=== PATIENT | male | born 1970 | race Caucasian/White ===

== ENCOUNTER 2016-11-04 08:00 | Outpatient (CLI) | payer BC ==
[2016-09-22 07:59] VITALS: BMI 42.2
[~2016-11-04 08:00] MED LIST: ASPIRIN325 MG PO; ASPIRIN81 MG PO; LISINOPRIL-HCTZ1 TA2 PO; PLAVIX75 MG PO
[2016-11-05 08:20] LABS: HEPATITIS C ANTIBODY <0.1 (0.0-0.9)
[2016-12-02] MEDS ORDERED: CLARITIN 10 MG10 MG PO (13:09)
== END 2016-11-04 23:59 | disposition home or self-care (01) ==
LOC: D.US 08:00
PROVIDERS: Internal Medicine Cardiovascular Disease
DX: I65.21 Occlusion and stenosis of right carotid artery (principal); Z01.810 Encounter for preprocedural cardiovascular examination; Z01.811 Encounter for preprocedural respiratory examination; Z01.812 Encounter for preprocedural laboratory examination

== ENCOUNTER 2016-11-15 08:00 | Outpatient (CLI) | payer BC ==
[2016-09-22 07:59] VITALS: BMI 42.2
--- NOTE | 2016-11-13 12:21 | HP ---
PATIENT: NAZANIN RAMEY MEDICAL RECORD: [id number] ACCOUNT: [id number] LOCATION:[facility] : 68 ADMISSION DATE: 11/16/16 HISTORY AND PHYSICAL EXAMINATION RONALD Davis (46yo, M) ID# [id number]. Date/Time11/04/2016 11:25YWAUE73 1969[facility] Dept.[facility] ClinicProviderEDNGUYEN STAHL MDInsuranceMed Primary: BCBS-[place]: [employer] - HEALTH ADVANTAGE (PPO) Insurance # : [id number] Policy/Group # : [id number] PCP : TERESITA WILDE Referring Provider Name : TERESITA WILDE Employer Name : SELF EMPLOYED Prescription: MDIM - Member is eligible. Chief Complaint Coronary artery disease Followup: Aortic valve stenosis following 3 weeks surgery date? Patient's Care Team Primary Care Provider (): TERESITA WILDE: [facility], [address] [place] [phone], , Referring Provider (): TERESITA WILDE: [facility], [facility] [place] [address], , Patient's Pharmacies [facility] [id number] (ERX): [address] [place] [address], , Vitals BP:100/70 sitting R arm 11/04/2016 12:15 pmHR:60R/R 11/04/2016 12:15 pmHt:6 ft 2 in 11/04/2016 12:08 pmWt:315 lbs 11/04/2016 12:14 pmNotes:murmur 11/04/2016 12:15 pmBMI:40.4 11/04/2016 12:14 pmAllergies Reviewed Allergies NKDAMedications Reviewed Medications tgxfgpy68/27/11 enteredKristen HerroncephALEXin 500 mg /04/17 filledMEDIMPACTclopidogrel 75 mg qvuohz27/30/16 filledMEDIMPACTfluticasone 50 mcg/actuation nasal spray,xccagvbxyd61/04/17 filledMEDIMPACTlisinopril 10 mg-hydrochlorothiazide 12.5 mg tablet TK1 T PO D112/13/15 filledMEDIMPACTProblems Reviewed Problems Coronary arteriosclerosis - Onset: 11/04/2016 Aortic valve stenosis - Onset: 10/13/2016 Disorder of shoulder Pain in right knee Organic sleep apnea Obstructive sleep apnea syndrome Family History Discussed Family History Father- Depressive disorderMaternal Grandmother- Heart diseasePaternal Grandfather- Heart diseaseSocial History Reviewed Social History HISTORY AND PHYSICAL [id number] NAZANIN RAMEY Cardiology Family history of heart disease?: Y Smoking Status: Never smoker High Cholesterol: Y High blood pressure: Y Overweight: Y Obese: Y Alcohol intake: None Diet: Regular Occupation: Construction Marital status: Is blood transfusion acceptable in an emergency?: Y Surgical History Reviewed Surgical History Tonsillectomy - 10/24/1975 - UNKNOWN DATE coronary stent 2015 Past Medical History Reviewed Past Medical History Chest Pain: Y Heart Murmur: Y High Blood Pressure: Y Hypertension: Y Shortness of Breath: Y Stroke: Y Notes: pain in chest area Documents for Discussion N/A Screening None recorded. HPI Valvular Heart Disease Reported by patient. Context: aortic stenosis Associated Symptoms: dyspnea moderate; chest pain Notes: stop plavix 10/23/16 "chest pain with activity. Dr. Soto says it's r/t heart vavle" Severe aortic stenosis ROS Patient reports exercise intolerance. He reports chest pain on exertion, shortness of breath when walking, shortness of breath when lying down, and known heart murmur. He reports shortness of breath. Neurologic:: hx stroke 2010, BP related and affected L side. ROS as noted in the HPI Physical Exam Patient is a 46-year-old male. Constitutional: General Appearance healthy-appearing and obese. Level of Distress NAD. Ambulation ambulating normally. Cardiovascular: Apical Impulse not displaced, no thrill, and displaced (laterally). Heart Auscultation normal s1 and s2, no rubs or gallops, and RRR and murmur (aortic stenosis). Arterial Pulses no abdominal aorta bruits, femoral bruits, or popliteal bruits and 2+ bilateral, carotid 2+ bilateral, femoral 2+ bilateral, popliteal 2+ HISTORY AND PHYSICAL [id number] NAZANIN RAMEY bilateral, and dorsalis pedis 2+ bilateral. Edema no edema or varicosities. Lungs: Repiratory Effort no dyspnea. Percussion no hyperresonance or dullness or flatness. Auscultation no wheezing, rhonchi, or rales / crackles and breathing sounds normal, good air movement, and CTA except as noted. Abdomen: Bowl Sounds normal. Inspection and Palpation no tenderness, guarding, masses, or rebound tenderness and soft and non-distended. Liver non-tender and no hepatomegaly. Spleen non-tender and no splenomegaly. Hernia none palpable. Musculoskeletal System: Gait And Stance normal gait and stance. Digits and Nails normal nails and no cyanosis. Neurologic: Cranial Nerves grossly intact. Reflexes DTRs 2+ bilaterally throughout. Sensation grossly intact. Lymph Nodes: Lymph Nodes no cervical LAD, supraclavicular LAD, axillary LAD, or inguinal LAD. Eyes: Lids and Conjunctivae no discharge or pallor and non-injected. Pupils PERRLA. Cornea grossly intact. EOM EOMI. Lens clear. Sclerae non-icteric. Neck: Neck no masses, enlarged lymph nodes, or carotid bruits and supple and trachea midline. Thyroid no enlargement or nodules and non-tender. Skin: Inspection and Palpation no rash, lesions, ulcers, jaundice, or abnormal nevi. Assessment / Plan Severe aortic stenosis he would like to proceed with aortic valve replacement He would prefer a mechanical valve 1. Aortic valve stenosis I35.0: Nonrheumatic aortic (valve) stenosis AORTIC VALVE STENOSIS: CARE INSTRUCTIONS Discussion Notes I have discussed the patient's disease process with him and his in detail as well as the alternative methods of treatment. We discussed the different types of valve to be used mechanical versus tissue. He would like to proceed with a mechanical valve. I have discussed aortic valve replacement with them including the expected benefits and risks which included bleeding, infection, stroke, and . He understands all of the above and wishes to proceed with surgery the week of the . Hepatitis screen and carotid Doppler study today CHERYL STAHL MD at 1221 CC: [id number] DICTATION DATE: 11/04/16 1100 MARKETING OUTREACH COORDINATOR: DM 11/10/16 1537 PRE IN [facility] [address] [place] [address]
[2016-11-15] MEDS ORDERED: FLUTICASONE PRO16 GM NASAL (13:02)
[2016-11-15 14:14] LABS: BASOPHILS 0.1 % (0.0-2.0); EOSINOPHILS 2.3 % (0-7); HEMATOCRIT 43.8 % (42.0-54.0); HEMOGLOBIN 14.7 g/dL (13.5-17.5); IMMATURE GRANULOCYTES 0.2 % (0-5); LYMPHOCYTES 18.2 % (15-50); MCH 29.3 pg (26.0-34.0); MCHC 33.6 g/dL (31.0-37.0); MCV 87.4 fL (80.0-100.0); MEAN PLATELET VOLUME 9.1 fL (7.4-10.4); MONOCYTES 10.2 % (2-11); PLATELET COUNT 196 10x3/uL (130-400); RBC 5.01 10x6/uL (4.20-6.10); RDW 13.5 % (11.5-14.5); WBC 8.6 10x3/uL (4.8-10.8)
[2016-11-15 14:19] LABS: APPEARANCE CLEAR (CLEAR); BILIRUBIN NEGATIVE (NEGATIVE); COLOR YELLOW (YELLOW); GLUCOSE NEGATIVE (NEGATIVE); KETONE NEGATIVE (NEGATIVE); LEUKOCYTE ESTERASE NEGATIVE (NEGATIVE); NITRITE NEGATIVE (NEGATIVE); PROTEIN NEGATIVE (NEGATIVE); SPECIFIC GRAVITY 1.015 (1.005-1.020); UROBILINOGEN NORMAL (NORMAL)
[2016-11-15 14:32] LABS: APTT 28.4 SECONDS (22.8-39.4); INR 1.04 (0.85-1.17); PROTIME 13.5 SECONDS (11.6-15.0)
[2016-11-15 14:48] LABS: ALBUMIN 3.7 g/dL (3.4-5.0); ALKALINE PHOSPHATASE 79 U/L (46-116); ALT (SGPT) 22 U/L (10-68); BILIRUBIN - TOTAL 0.29 mg/dL (0.2-1.3); CALC OSMOLALITY 286 mosm/kg (275-300); CALCIUM 9.2 mg/dL (8.5-10.1); CARBON DIOXIDE 28.3 mmol/L (21.0-32.0); CHLORIDE - SERUM 105 mmol/L (98-107); CHOLESTEROL, TOTAL 216 mg/dL (0-200); CREATININE - SERUM 1.1 mg/dL (0.6-1.3); GLUCOSE 92 mg/dL (74-106); PHOSPHOROUS 3.2 mg/dL (2.5-4.9); POTASSIUM - SERUM 4.1 mmol/L (3.5-5.1); PROTEIN - SERUM 7.6 g/dL (6.4-8.2); SODIUM 142 mmol/L (136-145); T4 THYROXIN - FREE 0.95 ng/dL (0.76-1.46); THYROID STIMULATING HORMONE 1.76 uIU/mL (0.36-3.74); UREA NITROGEN 23 mg/dL (7-18); URIC ACID 6.7 mg/dL (2.6-7.2); eGFR NON AFRICAN AMERICAN 76 mL/min (90-120)
[2016-11-15 14:52] LABS: HEMOGLOBIN A1C 5.9 % (4.8-6.0)
[2016-11-15 15:30] LABS: COLD SCREEN @ 4 DEGREES 2+ (NEGATIVE); COLD SCREEN ROOM TEMP NEGATIVE (NEGATIVE)
[2016-12-02] MEDS ORDERED: CLARITIN 10 MG10 MG PO (13:09)
== END 2016-11-15 23:59 | disposition home or self-care (01) ==
LOC: D.PAN 08:00 → D.SDCHOLD 11-16 07:30 → EDSTATUS 11-16 07:30
PROVIDERS: Internal Medicine Cardiovascular Disease
DX: I35.0 Nonrheumatic aortic (valve) stenosis (principal); Z01.810 Encounter for preprocedural cardiovascular examination; Z01.811 Encounter for preprocedural respiratory examination; Z01.812 Encounter for preprocedural laboratory examination; Z53.9 Procedure and treatment not carried out, unspecified reason

== ENCOUNTER 2016-12-03 05:05 | Inpatient (IN) | payer BC ==
[2016-12-02 14:53] LABS: BASOPHILS 0.1 % (0.0-2.0); EOSINOPHILS 1.3 % (0-7); HEMOGLOBIN 14.4 g/dL (13.5-17.5); IMMATURE GRANULOCYTES 0.3 % (0-5); LYMPHOCYTES 19.2 % (15-50); MCH 28.7 pg (26.0-34.0); MCHC 32.7 g/dL (31.0-37.0); MCV 87.6 fL (80.0-100.0); MEAN PLATELET VOLUME 9.4 fL (7.4-10.4); MONOCYTES 8.5 % (2-11); NEUTROPHILS 70.6 % (40-80); PLATELET COUNT 179 10x3/uL (130-400); RBC 5.02 10x6/uL (4.20-6.10); RDW 13.7 % (11.5-14.5); WBC 9.1 10x3/uL (4.8-10.8)
[2016-12-02 15:06] LABS: APPEARANCE CLEAR (CLEAR); COLOR YELLOW (YELLOW)
[2016-12-02 15:07] LABS: BILIRUBIN NEGATIVE (NEGATIVE); GLUCOSE NEGATIVE (NEGATIVE); KETONE NEGATIVE (NEGATIVE); LEUKOCYTE ESTERASE NEGATIVE (NEGATIVE); NITRITE NEGATIVE (NEGATIVE); PROTEIN NEGATIVE (NEGATIVE); UROBILINOGEN NORMAL (NORMAL)
[2016-12-02 15:10] LABS: HEMOGLOBIN A1C 5.8 % (4.8-6.0)
[2016-12-02 15:15] LABS: ALKALINE PHOSPHATASE 76 U/L (46-116); ALT (SGPT) 24 U/L (10-68); BILIRUBIN - TOTAL 0.45 mg/dL (0.2-1.3); CALC OSMOLALITY 284 mosm/kg (275-300); CHLORIDE - SERUM 104 mmol/L (98-107); CHOLESTEROL, TOTAL 206 mg/dL (0-200); GLUCOSE 85 mg/dL (74-106); PHOSPHOROUS 3.4 mg/dL (2.5-4.9); POTASSIUM - SERUM 4.5 mmol/L (3.5-5.1); PROTEIN - SERUM 7.4 g/dL (6.4-8.2); SODIUM 141 mmol/L (136-145); T4 THYROXIN - FREE 1.11 ng/dL (0.76-1.46); THYROID STIMULATING HORMONE 1.48 uIU/mL (0.36-3.74); UREA NITROGEN 27 mg/dL (7-18); URIC ACID 6.7 mg/dL (2.6-7.2); eGFR NON AFRICAN AMERICAN 85 mL/min (90-120)
[2016-12-02 15:58] LABS: COLD SCREEN @ 4 DEGREES 2+ (NEGATIVE); COLD SCREEN ROOM TEMP NEGATIVE (NEGATIVE)
[~2016-12-03] VITALS: Ht 188 cm; Wt 145.5 kg
[2016-12-03] VITALS (45 sets, daily range): BP systolic 81–110; BP diastolic 39–73; BMI 39.9
[~2016-12-03 05:05] MED LIST changes: +CLARITIN 10 MG10 MG PO; +FLUTICASONE PRO16 GM NASAL
[2016-12-03 05:47] LABS: APTT 28.5 SECONDS (22.8-39.4); INR 0.97 (0.85-1.17); PROTIME 12.7 SECONDS (11.6-15.0)
[2016-12-03 08:07] LABS: PLT FUNCT.(P2Y12) PLAVIX 292 PRU (194-418)
[2016-12-03 13:00] LABS: HEMATOCRIT 36.1 % (42.0-54.0); MCH 28.7 pg (26.0-34.0); MCHC 33.2 g/dL (31.0-37.0); MCV 86.4 fL (80.0-100.0); MEAN PLATELET VOLUME 9.3 fL (7.4-10.4); RBC 4.18 10x6/uL (4.20-6.10); RDW 13.7 % (11.5-14.5); WBC 13.9 10x3/uL (4.8-10.8)
[2016-12-03 13:19] LABS: APTT 36.6 SECONDS (22.8-39.4); CALCIUM 8.3 mg/dL (8.5-10.1); CARBON DIOXIDE 23.4 mmol/L (21.0-32.0); CHLORIDE - SERUM 105 mmol/L (98-107); CREATININE - SERUM 0.8 mg/dL (0.6-1.3); INR 1.31 (0.85-1.17); POTASSIUM - SERUM 4.2 mmol/L (3.5-5.1); PROTIME 16.2 SECONDS (11.6-15.0); SODIUM 139 mmol/L (136-145); eGFR NON AFRICAN AMERICAN > 90 mL/min (90-120)
[2016-12-03 13:20] LABS: CALC OSMOLALITY 283 mosm/kg (275-300); GLUCOSE 174 mg/dL (74-106); UREA NITROGEN 19 mg/dL (7-18)
--- NOTE | 2016-12-03 13:28 | NUR ---
RECIEVED PT TO ROOM 2304 VIA BED, ICU MONITORS CONNECTED. SEE ASSESSMENT FLOWSHEET FOR ALL FINDINGS.
--- NOTE | 2016-12-03 13:30 | NUR ---
INVOS LEFT 64, RIGHT 64.
--- NOTE | 2016-12-03 13:40 | NUR ---
FAMILY AT BEDSIDE, UPDATED BY DR STAHL.
--- NOTE | 2016-12-03 14:37 | NUR ---
SPOKE WITH DAYLIN HARE RN VIA PHONE. PT ABGs AND VITALS REPORTED TO DR STAHL.
--- NOTE | 2016-12-03 15:15 | NUR ---
DR STAHL AT BEDSIDE, NEW ORDERS RECEIVED.
--- NOTE | 2016-12-03 17:17 | NUR ---
SPOKE WITH DR STAHL VIA PHONE, UPDATE PROVIDED.
--- NOTE | 2016-12-03 18:25 | NUR ---
ABG OBTAINED AND PT PLACED ON CPAP.
--- NOTE | 2016-12-03 19:15 | NUR ---
ASSESSMENT COMPLETED. SEE ASSESSMENT FLOWSHEET FOR DETAILS. B/P FROM 80-90'S THEN DOWN TO UPPEER 70'S BRIEFLY. RT RADIAL A-LINE INTACT WITH FLEXION BOARD IN USE. LOOSENED TIES AROUND FLEXION BOARD SOME. CAP REFILL< 4 SECONDS. COOL TEMP TO DISTAL EXTREMITIES. RT IJ ANGIE AT APPROX. 52 CM LOCKED. TPM SET @ VVI-60; VMA OF 10. PACER SENSING ONLY. IN SINUS RHYHTM TO SINUS TACHYCARDIA. TEMP ELEVATED TO 38.9 CELCIUS. REMOVED SHEET AND BLANKET FROM BODY. ON CPAP MODE VIA VENT. TEDS AND SCD'S ON TO BILATERAL LE'S. PALPABLE PERIPHERAL PULSES X4. RT SC CVL INTACT. WILL MONITOR.
--- NOTE | 2016-12-03 20:15 | NUR ---
CALLED DR. STAHL AND INFORMED OF B/P SYSTOLIC IN THE 80'S WITH SOME PAC/PVC'S NOTED. ALSO INFORMED OF TEMP UP TO 39.3 CELCIUS. NEW ORDERS RECEIVED. WILL MONITOR. 1:1 NURSING CARE IN PROGRESS.
--- NOTE | 2016-12-03 20:25 | NUR ---
EXTUBATED TO 6LPM/NC AND OGT REMOVED VIA NILES WITH R.T. TOLERATED WELL. MINIMAL SECRETIONS REMOVED ORALLY AND OETT BEFORE EXTUBATION. WILL MONITOR.
--- NOTE | 2016-12-03 21:10 | NUR ---
IN AT BEDSIDE FOR VISITATION. OLD BLOODY DRAINAGE NOTED AROUND GAN CATHETER. WANTS HIS INSTEAD OF MYSELF TO WASH THE AREA. DONNED GLOVES AND DONE SO. UPDATE GIVEN. WILL MONITOR.
--- NOTE | 2016-12-03 22:15 | NUR ---
CALLED DR. STAHL IN REGARD TO B/P IN THE 70'S CONSISTENTLY. ABG OBTAINED AND REVIEWED WITH DR. STAHL. HEMODYNAMIC INFO GIVEN. NEW ORDERS RECEIVED TO INCREASE DOPAMINE TO 7.5MCG/KG/MIN AND IF THAT DOES NOT GET SBP >90, START JHOAN GTT.
--- NOTE | 2016-12-03 22:40 | NUR ---
I.S. COMPLETED AFTER BREATHING TREATMENT FINISHED. ACHIEVED 750ML TWICE AND 500ML THE OTHER 8 TIMES. MINIMAL SPUTUM PRODUCTION AFTER SPLINTED COUGH DONE. WILL MONITOR.
--- NOTE | 2016-12-03 23:10 | NUR ---
REASSESSMENT COMPLETED. SEE ASSESSMENT FLOWSHEET. SLIGHT RUB HEARD HEART TONES. 38.7 DEGREES CELCIUS VIA VIGILENCE MONITOR. WILL MONITOR.
--- NOTE | 2016-12-03 23:30 | NUR ---
TURNED AND REPOSITIONED TO LEFT SIDE SLIGHTLY WITH PILLOW. TOLERATED WELL. COUGH AND DEEP BREATHING EXERCISES COMPLETED. SMALL AMT OF THICK, RENEE COLORED SPUTUM REMOVED. WILL MONITOR.
[2016-12-04] VITALS (94 sets, daily range): BP systolic 92–127; BP diastolic 49–76; Ht 188 cm; Wt 145.5 kg
--- NOTE | 2016-12-04 00:48 | NUR ---
SIPS OF WATER GIVEN. FAN PLACED PER PT REQUEST AND POINTING AT LEGS ONLY. IV PROTONIX GIVEN. WILL MONITOR.
--- NOTE | 2016-12-04 00:55 | NUR ---
FSBS-170. INCREASED INSULIN GTT TO 2 UNITS/HR ON GTT.
--- NOTE | 2016-12-04 02:20 | NUR ---
Q4H ABG DRAWN BY RT CAGE. BREATHING TREATMENT ALSO STARTED. 12-LEAD EKG COMPLETED PER ORDERS. TOLERATED WELL. NO NEW ACUTE DISTRESS NOTED. WILL MONITOR.
--- NOTE | 2016-12-04 03:30 | NUR ---
PORTABLE CHEST XRAY COMPLETED. TOLERATED WELL. 75% ASSIST WITH SITTING UP TO GET BOARD BEHIND HIM. REASSESSMENT COMPLETED. SEE ASSESSMENT FLOWSHEET. NEURO INTACT. O2 @ 5LPM/NC. WEANED DOPAMINE TO 7.2 MCG/KG/MIN. WILL MONITOR.
--- NOTE | 2016-12-04 04:58 | NUR ---
FSBS-160. INCREASED INSULIN TO 7 UNITS/HR. ASKING WHAT THE SUGAR WAS. INFORMED. INFORMED SUGAR WILL BE TAKEN AGAIN IN 30 MINUTES. NO ACUTE DISTRESS NOTED. WILL MONITOR. 1:1 NURSING CARE IN PROGRESS.
--- NOTE | 2016-12-04 05:21 | NUR ---
DECREASED O2 TO 4LPM/NC. O2 SATS RUNNING 96-97%. WILL MONITOR.
--- NOTE | 2016-12-04 05:47 | NUR ---
ABG DRAWN FOR LAST SET OF Q4H DRAWS ALONG WITH AM LABS TAKEN FROM RT RADIAL A-LINE. WILL MONITOR. 1:1 NURSING CARE IN PROGRESS.
[2016-12-04 05:56] LABS: HEMATOCRIT 34.9 % (42.0-54.0); HEMOGLOBIN 11.6 g/dL (13.5-17.5); MCH 28.6 pg (26.0-34.0); MCHC 33.2 g/dL (31.0-37.0); MEAN PLATELET VOLUME 9.1 fL (7.4-10.4); RBC 4.06 10x6/uL (4.20-6.10); RDW 13.6 % (11.5-14.5); WBC 12.3 10x3/uL (4.8-10.8)
--- NOTE | 2016-12-04 06:00 | NUR ---
KCL RIDER STARTED VIA BURETROL FOR K+=3.7 ON ABG. AT BEDSIDE FOR 0600 VISIT. UPDATE GIVEN. PATIENT DENIES TO BE TURNED AT THIS TIME.
[2016-12-04 06:15] LABS: ALBUMIN 3.9 g/dL (3.4-5.0); ALKALINE PHOSPHATASE 44 U/L (46-116); ALT (SGPT) 19 U/L (10-68); BILIRUBIN - TOTAL 0.77 mg/dL (0.2-1.3); CALC OSMOLALITY 285 mosm/kg (275-300); CALCIUM 8.8 mg/dL (8.5-10.1); CARBON DIOXIDE 26.2 mmol/L (21.0-32.0); CHLORIDE - SERUM 104 mmol/L (98-107); GLUCOSE 188 mg/dL (74-106); POTASSIUM - SERUM 3.8 mmol/L (3.5-5.1); PROTEIN - SERUM 6.7 g/dL (6.4-8.2); SODIUM 140 mmol/L (136-145); UREA NITROGEN 19 mg/dL (7-18); eGFR NON AFRICAN AMERICAN 85 mL/min (90-120)
--- NOTE | 2016-12-04 06:40 | NUR ---
REPORTS FEELING A LITTLE BIT NAUSEATED AFTER A FEW SIPS OF DIET [place]. ZOFRAN GIVEN PER REQUEST. WILL MONITOR.
--- NOTE | 2016-12-04 06:59 | NUR ---
REPORT GIVEN TO SHELTON SOTELO RN.
--- NOTE | 2016-12-04 09:00 | NUR ---
IV DRIPS ADJUSTED SEE FLOW SHEET.
--- NOTE | 2016-12-04 09:10 | NUR ---
FAMILY AT BEDSIDE UPDATED.
--- NOTE | 2016-12-04 10:27 | NUR ---
CRITICORE GAN BATTERIES CHANGED.
--- NOTE | 2016-12-04 11:05 | NUR ---
DR. STAHL AT BEDSIDE.
--- NOTE | 2016-12-04 11:18 | NUR ---
ENCOURAGED COUGHING, DEEP BREATHING, AND IS. PULLING [id number] ON IS.
--- NOTE | 2016-12-04 12:06 | OP ---
PATIENT NAME: NAZANIN RAMEY MEDICAL RECORD: [id number] :68 LOCATION:[facility] D.2304 ADMISSION DATE:12/03/16 SURGEON: CHERYL PIERCE MD DATE OF OPERATION: 12/03/2016 SURGEON: Cheryl Pierce MD. ANESTHESIA: General endotracheal, Dr. Alvarado. OPERATION PERFORMED: Aortic valve replacement utilizing a 25-mm St. Wale mechanical valvular prosthesis. PREOPERATIVE DIAGNOSIS: Severe aortic stenosis. POSTOPERATIVE DIAGNOSIS: Severe aortic stenosis secondary to bicuspid aortic valve with severe aortic and annular calcification. INDICATION FOR OPERATION: Severe aortic stenosis. FINDINGS AT OPERATION: Severe aortic stenosis secondary to a heavily calcified bicuspid aortic valve with severe calcification of the annulus. ESTIMATED BLOOD LOSS: Cell Saver was used. Transesophageal echo demonstrated the critical aortic stenosis, dilated left ventricle that improved post-valve replacement. DESCRIPTION OF PROCEDURE: After informed consent and adequate preoperative medication evaluation, the patient was brought to the operating room, placed on the table in the supine position. After induction of general endotracheal anesthesia and application of appropriate monitoring devices, chest, neck, abdomen, and both legs were prepped and draped in a sterile field, utilizing Betadine scrub, alcohol, and Betadine solution. A Betadine-impregnated drape was also used. A standard median sternotomy incision was used and dissection carried down the fascia. Hemostasis maintained with electrocautery. Sternum was divided and the innominate vein was identified and protected. The pericardial well was formed by utilizing pericardial traction sutures. The patient was given a calculated dose of heparin, cannulated in the standard fashion utilizing 1 aortic, one two-stage cannula in the atrium and inferior vena cava. The patient was placed on cardiopulmonary bypass, cooled to 32 degrees centigrade. A cross clamp was placed just proximal to the aortic cannula and the patient was given cardioplegic solution through the aortic root. The patient was given a cold induction and cold maintenance. The patient was given cold intermittent cardioplegic solution throughout the procedure through the root or directly through the coronary ostia. A vent was placed to the right superior pulmonary vein. The aorta was opened, the valve was examined. The valve was excised in pieces due to the heavy calcification. The annulus then underwent an extensive debridement and irrigation. Care was taken not to lose any calcium particles. The annulus was also heavily calcified in ____ left cusp areas and there were several areas where the calcium was removed and then the annulus and ventricular structures were reapproximated with 5-0 Prolene sutures. The annulus was completely decalcified. The annulus sized to a 25 [address] Wale mechanical heart valve. Circumferential valve sutures were placed, being careful to take the pledgeted in through the base of the mitral valve and ventricular side of the annulus and exiting above the annulus structures. This OPERATIVE REPORT [id number] NAZANIN RAMEY was a supravalvular valve; therefore, circumferential valve sutures were placed through the sewing ring of the valve. The valve was lowered into position and secured. The platelet seated nicely and there were no leaks. The aorta was irrigated and closed in layers utilizing 2 layers of running 4-0 Prolene suture. All maneuvers to remove trapped air were performed. The patient was then given warm cardioplegic reperfusion and controlled reperfusion. The patient rewarmed to 37 degrees centigrade. Two atrial and 2 ventricular pacing wires were placed on the heart and brought out through the epigastric area. After rest and recuperation time, the patient was weaned from cardiopulmonary bypass. After being stable off bypass, given calculated dose of protamine to reverse the heparin. Hemostasis was achieved. A #40 right angle and #36 chest tube were brought in through the epigastric area and placed in mediastinum. The chest was again irrigated. Instrument count and sponge count were correct times 2. Chest was closed in layers utilizing #7 wire on the sternum, #2 Vicryl on linea alba and pectoralis fascia. Subcutaneous tissue was approximated with 2-0 Vicryl and skin approximated with 3-0 subcuticular Vicryl. Sterile dressings were applied. The patient tolerated the procedure well and transferred to the ICU in stable condition. TRANSINT:[id number] Voice Confirmation ID: [id number] DOCUMENT ID: [id number] CHERYL PIERCE MD at 1206 CC: [id number] DICTATION DATE: 12/03/16 1313 ASSOCIATE PROFESSOR PHYSICIAN: 12/03/16 1632 ADM IN [facility] [address] [place] [address]
--- NOTE | 2016-12-04 16:23 | NUR ---
PVC'S NOTED. ABG DRAWN. AWAITING RESULTS.
--- NOTE | 2016-12-04 16:35 | NUR ---
K+ REPLACEMENT PER PROTOCOL.
--- NOTE | 2016-12-04 18:29 | NUR ---
NEELIMA GAN NOTED TO HAVE APPROXIMATELY 30 CC OF URINE NOTED DESPITE SCREEN RECORDING OF 0 ML. CRITICORE BOX CHANGED OUT. 31 ML OF URINE NOTED OF CONTAINER VOLUME ON NEW BOX.
--- NOTE | 2016-12-04 19:15 | NUR ---
ASSESSMENT COMPLETED. SEE ASSESSMENT. AWAKE, ALERT. WATCHING TV. TPM SET AT VVI-60; VMA OF 10. PACER SENSING ONLY. NSR IN THE 80'S ON THE MONITOR. O2 @ 3LPM/NC. RT IJ SWAN INTACT @ QPPROX. 52CM. RT SC CVL INTACT. CT X2 TO 20 CM SUCTION. NO AIR LEAK NOTED. MINIMAL BLOODY DRAINAGE NOTED. RT RADIAL A-LINE INTACT. REPORTS NUMBNESS TO RT HAND IS BETTER THAN YESTERDAY. TEDS AND SCD'S TO BILATERAL LE'S. TITRATING DOPAMINE TO OFF. DR. STAHL CALLED THE ROOM FOR UPDATE. UPDATE GIVEN. ORDERS TO MAINTAIN WEANING DOPAMINE OFF. NO OTHER ORDERS RECEIVED. WILL MONITOR. 1:1 NURSING CARE IN PROGRESS.
--- NOTE | 2016-12-04 20:38 | NUR ---
2100 MEDS GIVEN. TOLERATED WELL. BLANKET PLACED ON HIM PER REQUEST. ADMINISTRATIVE SUPPORT MANAGER BUTTON USED PER HIS SELF. WILL MONITOR.
--- NOTE | 2016-12-04 21:20 | NUR ---
FAMILY X3 AT BEDSIDE VISITING. CONVERSATION TAKING PLACE WITH THEM. NO ACUTE DISTRESS NOTED. WILL MONITOR.
--- NOTE | 2016-12-04 22:15 | NUR ---
BREATHING TREATMENT GIVEN PER R.T. I.S. DONE 1250-1500ML X 10 TIMES. PLACED ONTO HOME CPAP MACHINE W/ O2 BLEEDING IN. DENIES TO BE TURNED IN BED. WILL MONITOR.
--- NOTE | 2016-12-04 23:00 | NUR ---
REASSESSMENT COMPLETED. SEE ASSESSMENT FLOWSHEET. NO NEW ACUTE CHANGES NOTED. SINUS RHYTHM ON THE MONITOR-80'S. WILL MONITOR. 1:1 NURSING CARE IN PROGRESS.
[2016-12-05] VITALS (57 sets, daily range): BP systolic 95–149; BP diastolic 58–96
--- NOTE | 2016-12-05 01:00 | NUR ---
DECREASED O2 TO 2LPM/NC. EYES CLOSED. NO ACUTE DISTRESS NOTED.
--- NOTE | 2016-12-05 02:15 | NUR ---
MORE FREQUENT PVC'S NOTED. ABG'S DRAWN FROM RT RADIAL A-LINE. BREATHING TREATMENT STARTED AFTER TAKING OFF CPAP AND PLACING BACK ONTO CANNULA. K+ RIDER STARTED VIA BURETROL. WILL MONITOR.
--- NOTE | 2016-12-05 03:30 | NUR ---
REASSESSMENT COMPLETED. SEE ASSESSMENT FLOWSHEET. READJUSTED CPAP MASK FOR LESS LEAKING. DOPAMINE GTT DOWN TO 1 MCG/KG/MIN. NO NEW ACUTE CHANGES NOTED. WILL MONITOR. 1:1 NURSING CARE IN PROGRESS.
--- NOTE | 2016-12-05 04:20 | NUR ---
DOPAMINE GTT D/C'ED. CARDIAC OUTPUT 8-9. WILL MONITOR. 1:1 NURSING CARE IN PROGRESS.
[2016-12-05 05:39] LABS: HEMATOCRIT 30.7 % (42.0-54.0); HEMOGLOBIN 10.3 g/dL (13.5-17.5); MCH 28.6 pg (26.0-34.0); MCHC 33.6 g/dL (31.0-37.0); MCV 85.3 fL (80.0-100.0); MEAN PLATELET VOLUME 9.7 fL (7.4-10.4); RBC 3.6 10x6/uL (4.20-6.10); RDW 13.7 % (11.5-14.5); WBC 20.1 10x3/uL (4.8-10.8)
--- NOTE | 2016-12-05 06:00 | NUR ---
FSBS ASSESSED. DECREASED INSULIN GTT TO 4 UNITS/HR. SUGAR-118. INFORMED OF COMING IN SHORTLY.
[2016-12-05 06:11] LABS: ALBUMIN 3.3 g/dL (3.4-5.0); ALKALINE PHOSPHATASE 40 U/L (46-116); ALT (SGPT) 21 U/L (10-68); BILIRUBIN - TOTAL 0.34 mg/dL (0.2-1.3); CALC OSMOLALITY 280 mosm/kg (275-300); CALCIUM 8.7 mg/dL (8.5-10.1); CARBON DIOXIDE 24.5 mmol/L (21.0-32.0); CHLORIDE - SERUM 105 mmol/L (98-107); CREATININE - SERUM 0.9 mg/dL (0.6-1.3); GLUCOSE 132 mg/dL (74-106); POTASSIUM - SERUM 4.3 mmol/L (3.5-5.1); PROTEIN - SERUM 6.2 g/dL (6.4-8.2); SODIUM 138 mmol/L (136-145); UREA NITROGEN 20 mg/dL (7-18); eGFR NON AFRICAN AMERICAN > 90 mL/min (90-120)
--- NOTE | 2016-12-05 06:30 | NUR ---
NITRO GTT STARTED @ 5ML/HR. SBP 140'S. WILL MONITOR.
--- NOTE | 2016-12-05 08:15 | NUR ---
NITRO TITRATED FOR EFFECT TO MAX DOSE. NITRO THEN DC'D AND CLEVIPREX STARTED PER ORDER. CLEVIPREX TITRATED TO EFFECT. SEE FLOWSHEET.
--- NOTE | 2016-12-05 13:40 | NUR ---
CHEST TUBES AND CORDIS DC'D PER DR. STAHL. LINES DC'D PER ORDER. ALL CATH TIPS INTACT. MANUAL PRESSURE APPLIED TIMES 5 MINUTES PER LINE. GAN CATH DC'D. URINAL PROVIDED. BED LINEN'S CHANGED. HYGIENE CARE PROVIDED. PT UP TO CHAIR PER P.T. C/L IN REACH.
--- NOTE | 2016-12-05 19:20 | NUR ---
REPORT REC'D AND CARE ASSUMED, REC'D PT ON O2 @ 4LITERS VIA NC, AWAKE, ALERT, ORIENTED X 3, MIDSTERNAL DRSG CDI, RDLSCL DRSG CDI BOTH LUMENS SALINE LOCKED, SUBSTERNAL DRSG CDI, EXTERNAL P/M VVI 60 VMA 10, CM-SR @ 84, BILAT STACEY'S, BILAT SCD'S REAPPLIED AND TURNED ON, PT DENIES PAIN OR OTHER NEEDS, SR UP X 2, CALL LIGHT IN REACH, AT BS.
--- NOTE | 2016-12-05 20:35 | NUR ---
EVENING MEDS GIVEN, PT DENIES NEEDS, BP ELEVATED WILL MONITOR FOR CHANGES.
--- NOTE | 2016-12-05 21:00 | NUR ---
VISITORS AT BS, PT DENIES FURTHER NEEDS.
--- NOTE | 2016-12-05 22:15 | NUR ---
PT WANTING TO GO TO SLEEP, COMPLAINS OF INCISIONAL DISCOMFORT, HYDROCODONE PROVIDED, PT REPOSITIONED UP IN BED FOR COMFORT, ASSISTED PT WITH HOME CPAP, WILL MONITOR FOR CHANGES.
--- NOTE | 2016-12-05 23:00 | NUR ---
REASSESSMENT COMPLETED, PT RESTING EYES CLOSED ON HOME CPAP, VSS, CM-SR @ 82, VSS, WILL MONITOR CLOSELY FOR CHANGES.
[2016-12-06] VITALS (24 sets, daily range): BP systolic 97–143; BP diastolic 55–93
--- NOTE | 2016-12-06 01:00 | NUR ---
ROUTINE MEDS GIVEN, PT RESTING EYES CLOSED ON CPAP, RESP EVEN AND UNLABORED, VSS.
--- NOTE | 2016-12-06 03:00 | NUR ---
RT AT BS FOR BREATHING TX AND ROUTINE EKG, PT PULLING 1250 ON IS, DENIES PAIN OR OTHER NEEDS.
--- NOTE | 2016-12-06 03:35 | NUR ---
PT TAKEN TO RADIOLOGY FOR PA AND LATERAL.
--- NOTE | 2016-12-06 03:55 | NUR ---
PT RETURNED FROM RADIOLOGY, ASSISTED BACK TO SIDE OF BED ATTEMPTED TO VOID WITHOUT RESULT, PT REQUESTING TO GO TO BED UNTIL TIME FOR BREAKFAST, PAIN PILL REQUESTED.
--- NOTE | 2016-12-06 04:04 | NUR ---
HYDROCODONE GIVEN PO FOR PAIN CONTROL, SCD'S REMOVED FOR BREAK, ICE WATER PROVIDED PER REQUEST, PT DENIES FURTHER NEEDS, SR UP X 2 , O2 WEANED TO 3 LITERS, O2 SAT 97%.
--- NOTE | 2016-12-06 05:00 | NUR ---
PT RESTING IN BED ON CPAP, NO DISTRESS NOTED, VSS, WILL MONITOR FOR CHANGES.
--- NOTE | 2016-12-06 06:10 | NUR ---
AM LAB DRAWN FROM SCL AND SENT TO LAB, PT RESTING ON CPAP, VSS, NO VISITORS IN AT THIS TIME.
[2016-12-06 06:19] LABS: HEMATOCRIT 30.3 % (42.0-54.0); HEMOGLOBIN 9.8 g/dL (13.5-17.5); MCH 28.2 pg (26.0-34.0); MCHC 32.3 g/dL (31.0-37.0); MEAN PLATELET VOLUME 9.3 fL (7.4-10.4); RBC 3.47 10x6/uL (4.20-6.10); RDW 13.9 % (11.5-14.5); WBC 15.5 10x3/uL (4.8-10.8)
[2016-12-06 06:26] LABS: MCV 87.3 fL (80.0-100.0)
[2016-12-06 06:33] LABS: INR 1.27 (0.85-1.17); PROTIME 15.8 SECONDS (11.6-15.0)
[2016-12-06 06:37] LABS: ALBUMIN 3.2 g/dL (3.4-5.0); ALKALINE PHOSPHATASE 45 U/L (46-116); ALT (SGPT) 23 U/L (10-68); CALC OSMOLALITY 285 mosm/kg (275-300); CALCIUM 8.5 mg/dL (8.5-10.1); CARBON DIOXIDE 28.8 mmol/L (21.0-32.0); CHLORIDE - SERUM 104 mmol/L (98-107); GLUCOSE 118 mg/dL (74-106); POTASSIUM - SERUM 4.4 mmol/L (3.5-5.1); PROTEIN - SERUM 6.2 g/dL (6.4-8.2); SODIUM 139 mmol/L (136-145); eGFR NON AFRICAN AMERICAN 85 mL/min (90-120)
[2016-12-06 06:44] LABS: UREA NITROGEN 32 mg/dL (7-18)
--- NOTE | 2016-12-06 07:15 | NUR ---
REPORT RECIEVED FROM SUPERVISOR PASTE PLANT NURSE. PT RESTING IN BED QUIETLY. CPAP ON 02 SAT 98%. RESP EVEN AND UNLABORED. TPM VVI 60. SR ON CM. ASSESSMENT COMPLETE PER FLOWSHEET. TEDS/SCDS ON. CALL LIGHT IN REACH. BED IN LOW POSITION. WILL CONT TO ASSESS FOR CHANGES.
--- NOTE | 2016-12-06 08:00 | NUR ---
SUBSTERNAL DRESSING CHANGED PER ORDERS. ASSISTED TO RECLINER WITH MINIMAL ASSIST. CALL LIGHT AND BEDSIDE TABLE PLACED IN REACH. WILL CONT TO ASSESS.
--- NOTE | 2016-12-06 09:46 | NUR ---
Nutrition follow-up: Diet: REgular PO intake ~60% of meals Labs reviewed Wt: 323# On CPAP at this time RDN following.
--- NOTE | 2016-12-06 11:15 | NUR ---
REASSESSMENT VIA FLOWSHEET, SEE FOR DETAILS.
--- NOTE | 2016-12-06 12:15 | NUR ---
PT TO CVICU VIA WHEELCHAIR, ICU MONITORS CONNECTED. VSS, SR ON CM.
--- NOTE | 2016-12-06 13:15 | NUR ---
PT AMBULATED WITH PHYSICAL THERAPY ASSIST.
--- NOTE | 2016-12-06 15:15 | NUR ---
REASSESSMENT VIA FLOWSHEET, SEE FOR DETAILS.
--- NOTE | 2016-12-06 18:15 | NUR ---
FAMILY AT BEDSIDE, UPDATE PROVIDED. PT REMAINS IN BEDSIDE.
--- NOTE | 2016-12-06 19:25 | NUR ---
REC'D TO CARE, AT BS. PT ALERT AND ORIENTED, VSS. CM - SR. MEDTRONICS TPM VVI 60 - SENSING. PT DENIES PAIN AT THIS TIME - "ONLY WHEN I COUGH" - USING PILLOW TO SPLINT CHEST. DSGS NOTED. ALARMS ON AND C/L IN REACH.
--- NOTE | 2016-12-06 21:20 | NUR ---
NO VISITORS, PT IN BED, ON IPAD, VSS. DENIES NEEDS C/L IN REACH.
--- NOTE | 2016-12-06 23:10 | NUR ---
REASSESSMENT PER FLOWSHEET, NO ACUTE CHANGES.. RESTING QUIETLY, HOME CPAP ON. VSS.
--- NOTE | 2016-12-06 23:34 | NUR ---
PT UP TO BATHROOM. VOIDED 1100 ML CLEAR YELLOW URINE IN URINAL. BACK TO BED WITH MINIMAL ASSIST. ALARMS ON AND C/L IN REACH.
[2016-12-07] VITALS (20 sets, daily range): BP systolic 93–142; BP diastolic 54–79
--- NOTE | 2016-12-07 03:15 | NUR ---
UP TO BATHROOM AND THEN UP IN CHAIR. C/L IN REACH.. TELEMETRY ON.
--- NOTE | 2016-12-07 04:15 | NUR ---
TO RADIOLOGY VIA W/C. 1220 - BACK TO ROOM AND BACK IN BED. VSS, C/L IN REACH.
--- NOTE | 2016-12-07 06:00 | NUR ---
NO VISITORS, AM LAB PENDING. PT RESTING WITH EYES CLOSED.
[2016-12-07 06:13] LABS: BASOPHILS 0.1 % (0.0-2.0); EOSINOPHILS 1.3 % (0-7); HEMATOCRIT 31.4 % (42.0-54.0); HEMOGLOBIN 10.1 g/dL (13.5-17.5); IMMATURE GRANULOCYTES 0.5 % (0-5); MCH 28.5 pg (26.0-34.0); MCHC 32.2 g/dL (31.0-37.0); MCV 88.5 fL (80.0-100.0); MEAN PLATELET VOLUME 9.3 fL (7.4-10.4); MONOCYTES 9.6 % (2-11); NEUTROPHILS 70.5 % (40-80); PLATELET COUNT 145 10x3/uL (130-400); RBC 3.55 10x6/uL (4.20-6.10); RDW 14.1 % (11.5-14.5)
[2016-12-07 06:16] LABS: WBC 10.8 10x3/uL (4.8-10.8)
[2016-12-07 06:18] LABS: INR 1.41 (0.85-1.17); PROTIME 17.2 SECONDS (11.6-15.0)
[2016-12-07 06:31] LABS: ALBUMIN 3.1 g/dL (3.4-5.0); ALKALINE PHOSPHATASE 46 U/L (46-116); ALT (SGPT) 25 U/L (10-68); CALCIUM 8.5 mg/dL (8.5-10.1); CARBON DIOXIDE 26.2 mmol/L (21.0-32.0); CHLORIDE - SERUM 104 mmol/L (98-107); CREATININE - SERUM 0.9 mg/dL (0.6-1.3); GLUCOSE 95 mg/dL (74-106); POTASSIUM - SERUM 4.2 mmol/L (3.5-5.1); PROTEIN - SERUM 6.3 g/dL (6.4-8.2); SODIUM 137 mmol/L (136-145); eGFR NON AFRICAN AMERICAN > 90 mL/min (90-120)
[2016-12-07 06:34] LABS: CALC OSMOLALITY 276 mosm/kg (275-300); UREA NITROGEN 20 mg/dL (7-18)
--- NOTE | 2016-12-07 07:00 | NUR ---
REPORT RECIEVED FROM UNDERGROUND MINING SECTION FOREMAN NURSE. PT RESTING IN BED WITH CPAP. VSS ON CM. TPM VVI 60. MIDSTERNAL AND SUBSTERNAL DRESSING'S C/D/I. SCDS/TEDS ON. REMOVED TO INSPECT SKIN. ASSESSMENT COMPLETE PER FLOWSHEET. CARE PLAN CONT. CALL LIGHT PLACED IN REACH. BED IN LOW POSITION. WILL CONT TO ASSESS FOR CHANGES.
--- NOTE | 2016-12-07 09:00 | NUR ---
NO CHANGES NOTED AT THIS TIME. PT ASSISTED TO THE RECLINER WITH NO DIFFICULTIES. BREAKFAST TRAY PLACED ON BEDSIDE TABLE. CALL LIGHT IN REACH. AT BEDSIDE.
--- NOTE | 2016-12-07 12:00 | NUR ---
AT BEDSIDE FOR VISITATION. LUNCH TRAY PLACED ON BEDSIDE TABLE. CALL LIGHT IN REACH. DENIED FURTHER NEEDS.
--- NOTE | 2016-12-07 12:45 | NUR ---
PT WALKING WITH PT. PORTABLE TELE ON. VSS STABLE THROUGHOUT WALK.
--- NOTE | 2016-12-07 15:00 | NUR ---
AT BEDSIDE. UPDATE PROVIDED. DENIES NEEDS AT THIS TIME. WILL CONT TO ASSESS. CALL LIGHT IN REACH.
--- NOTE | 2016-12-07 17:00 | NUR ---
NO CHANGES NOTED AT THIS TIME. URINAL EMPTIED. 600CC OF CLEAR, YELLOW URINE NOTED.
--- NOTE | 2016-12-07 19:30 | NUR ---
REC'D TO CARE, SEE PRODUCTION CONTROL SPECIALIST. PT BACK IN BED AFTER SITTING UP ALL DAY. VSS.. PT WITH GOOD COUGH. PRN MED JUST GIVEN PER AM NURSE. MEDTRONICS TPM, VVI 60 - SENSING. PT USES C/L. ALARMS ON.
--- NOTE | 2016-12-07 21:00 | NUR ---
PT VISITING WITH FRIEND. VSS, DENIES NEEDS.
--- NOTE | 2016-12-07 21:30 | NUR ---
DR. HARRISON NOTIFIED OF RUNS OF VTACH. PT ASYMPTOMATIC. NEW ORDERS REC'D.
--- NOTE | 2016-12-07 23:14 | NUR ---
REASSESSMENT PER FLOWSHEET, NO ACUTE CHANGES. PT DENIES NEEDS, HOME CPAP ON PER REQUEST. ALARMS ON AND C/L IN USE
[2016-12-08] VITALS (12 sets, daily range): BP systolic 110–132; BP diastolic 69–83
--- NOTE | 2016-12-08 01:14 | NUR ---
VSS, RESTING WITH EYES CLOSED.
--- NOTE | 2016-12-08 03:08 | NUR ---
REASSESSMENT PER FLOWSHEET, NO ACUTE CHANGES. R.T. AT BS FOR RESP TX. I.S. TO 1500, SPLINTS CHEST WITH PILLOW TO COUGH. VSS. C/L IN REACH.
--- NOTE | 2016-12-08 04:05 | NUR ---
TO RADIOLOGY VIA W/C FOR XRAY. 0430 BACK TO ROOM. PT BACK ON CPAP, DENIES NEEDS.
[2016-12-08 06:14] LABS: HEMATOCRIT 33.6 % (42.0-54.0); HEMOGLOBIN 10.9 g/dL (13.5-17.5); MCH 28.5 pg (26.0-34.0); MCHC 32.4 g/dL (31.0-37.0); MCV 87.7 fL (80.0-100.0); MEAN PLATELET VOLUME 9.1 fL (7.4-10.4); RBC 3.83 10x6/uL (4.20-6.10); RDW 14.4 % (11.5-14.5)
[2016-12-08 06:30] LABS: INR 1.49 (0.85-1.17); PROTIME 17.9 SECONDS (11.6-15.0)
[2016-12-08 06:38] LABS: ALBUMIN 3.2 g/dL (3.4-5.0); ALKALINE PHOSPHATASE 50 U/L (46-116); ALT (SGPT) 31 U/L (10-68); CALC OSMOLALITY 273 mosm/kg (275-300); CALCIUM 8.9 mg/dL (8.5-10.1); CARBON DIOXIDE 26.5 mmol/L (21.0-32.0); CHLORIDE - SERUM 103 mmol/L (98-107); CREATININE - SERUM 0.8 mg/dL (0.6-1.3); GLUCOSE 88 mg/dL (74-106); PROTEIN - SERUM 6.8 g/dL (6.4-8.2); SODIUM 137 mmol/L (136-145); UREA NITROGEN 15 mg/dL (7-18); eGFR NON AFRICAN AMERICAN > 90 mL/min (90-120)
--- NOTE | 2016-12-08 07:15 | NUR ---
REPORT RECIEVED FROM CASHIER AND SALESPERSON NURSE. PT RESTING IN BED QUIETLY. CPAP ON. VSS ON CM. RDLCL SL. MIDSTERNAL AND SUBSTERNAL DRESSING'S C/D/I. TPM VVI 60. CALL LIGHT IN REACH. SHIFT ASSESSMENT COMPLETE PER FLOWSHEET.
[2016-12-08] MEDS ORDERED: COUMADIN10 MG PO (08:05)
[2016-12-08] MEDS ORDERED: COZAAR50 MG PO (08:06)
[2016-12-08] MEDS ORDERED: HYDROCODONE-APA1 TAB PO (08:07)
--- NOTE | 2016-12-08 08:30 | NUR ---
ASSITED TO RECLINER WITH NO DIFFICULTIES. BREAKFAST TRAY PLACED IN REACH. DENIES FURTHER NEEDS.
--- NOTE | 2016-12-08 09:45 | NUR ---
Patient Name: NAZANIN RAMEY Admission Status: Elective Accout number: [id number] Admission Date: 12-03-2016 : 1970 Admission Diagnosis:NONRHEUMATIC AORTIC (VALVE) STENOSIS Attending: TRISTIN Current LOS: 5 Anticipated DC Date: 12-08-2016 Planned Disposition: Home Primary Insurance: [employer] O Is the patient Alert and Oriented? Yes * How many steps to enter\exit or inside your home? 16 * PCP DR WILDE * Pharmacy [facility] * Preadmission Environment Home with Family * ADLs Independent * Equipment CPAP * List name and contact numbers for known caregivers / representatives who currently or will assist patient after discharge: REBECCA RAMEY, SPOUSE, * Community resources currently utilized None * Additional services required to return to the preadmission environment? No * Can the patient safely return to the preadmission environment? Yes * Has this patient been hospitalized within the prior 30 days at any hospital? No Discharge Planning Comments: CM MET WITH PATIENT TO ASSESS DC PLAN/NEEDS. PT STATED HE LIVES AT HOME WITH HIS AND IS INDEPENDENT IN HIS CARE/ADL'S. STATED HE WORKS AND NORMALLY DRIVES HIMSELF. STATED HIS , REBECCA, WILL DRIVE HIM HOME AT DISCHARGE. HE HAS NEVER USED HH OR REHAB SERVICES AND DENIED NEED FOR ANY SERVICES AT DISCHARGE. HE USES HOME CPAP AND REPORTS THAT HIS ONLY DME EQUIPMENT AND VOICED NO NEED FOR ADDITIONAL DME AT DISCHARGE. HE STATED HE HAS 16 STAIRS IN HIS HOME WITH RAILING, BUT THAT HE DOES NOT HAVE TO GO UP/DOWN THE STAIRS AND ALL NEEDS ARE ON FIRST FLOOR. HE STATED HIS HOME IS A SAFE PLACE AND PLANS TO RETURN HOME WITH HIS FAMILY AT DC. CM PROVIDED PT WITH MY CONTACT NUMBER IF ANY DC NEEDS ARISE. CM WILL FOLLOW AND ASSIST NEEDED WITH DC PLAN/NEEDS. Coding Quality Analyst: Sintia Glover RN, CM
--- NOTE | 2016-12-08 10:10 | NUR ---
Nutrition follow-up: Diet: REgular PO intake 50-75% of meals Labs reviewed Wt: 320# Pt s/p aortic valve replacement PO intake if fair to good at this time. RDN following.
--- NOTE | 2016-12-08 10:45 | NUR ---
JOANNA MAO REMOVED TPM WIRES. BANDAIDS PLACED OVER SITES. PT TOLERATED WELL. WILL CONT TO ASSESS.
--- NOTE | 2016-12-08 13:00 | NUR ---
DISCHARGE INSTRUCTIONS REVIEWED WITH PT. QUESTIONS AND CONCERNS ANSWERED.
--- NOTE | 2016-12-17 08:46 | TEE ---
PATIENT:NAZANIN RAMEY MEDICAL RECORD: [id number] LOCATION:[place] [address] AGE OF PATIENT: 46 ADMISSION DATE: 12/03/16 SEX: M REFERRING PHYSICIAN: INTERPRETING PHYSICIAN: VIVIANE SOTO MD TRANSESOPHAGEAL ECHOCARDIOGRAM PRECIOUS CHARGE Y INDICATIONS: AVR PREMEDICATIONS: PATIENT'S RESPONSE PROCEDURE DOPPLER MEASUREMENTS: LVIT LA PA RA LVOT RVOT Asc. Ao AV Gradient Peak AV Mean AV Area MV Gradient Peak MV Mean MV Area INTERPRETATION: LVd: 4.8 cm LVs: 3.7 cm Doppler: 2-D: COLOR FLOW DOPPLER NORMAL SALINE STUDY: MISCELLANOUS: DIAGNOSIS: PLAN: Lamp Decorator:1 Dr. Soto Wound Nurse: Fallon MENDOZA COMMENTS: DATE OF SERVICE: 12/03/2016 Transesophageal echo evaluation of valvular structures during aortic valve replacement. FINDINGS: 1. Left ventricular chamber size is within normal limits. Left ventricular systolic function is mildly reduced, overall ejection fraction 40%. 2. Left atrium, right atrium and right ventricular chamber sizes are within TRANSESOPHAGEAL ECHOCARDIOGRAM REPORT [id number] NAZANIN RAMEY normal limits. 3. Valvular structures: Aortic valve demonstrates severe calcific aortic stenosis; however, this is not a new finding. The patient is scheduled for aortic valve replacement. The remaining valvular structures have normal structure and motion. 4. Doppler interrogation elsewise only reveals trace mitral regurgitation. No other valvular insufficiency or stenosis. 5. No evidence of pericardial effusion or left ventricular thrombus. TRANSINT:[id number] Voice Confirmation ID: [id number] DOCUMENT ID: [id number] 12/09/2016 Edited to correct date of service, dmm. at 0846 CC: [id number] DICTATION DATE: 12/06/16 1047 DEBURRER MACHINE: 12/06/16 1313 DIS IN 12/08/16 [place] [id number] [facility] [place] [id number]
--- NOTE | 2017-01-05 13:25 | DS ---
PATIENT:NAZANIN WILLIS :[birth year] MEDICAL RECORD: [id number] DISCHARGE SUMMARY ADMISSION DATE: 12/03/16 DISCHARGE DATE: 12/08/16 DISCHARGE DIAGNOSES: 1. Non-rheumatic aortic valve stenosis. 2. Hypercholesterolemia. 3. Essential hypertension. 4. Body mass index 39+. DISCHARGE MEDICATIONS: Please see medical reconciliation form. DISPOSITION: The patient discharged home, has appointment to see us in 3 days for a PT. FOLLOWUP: Will be in 3 weeks with chest x-ray and lab. HOSPITAL COURSE: Mr. Willis was admitted to the hospital and underwent aortic valve replacement utilizing a 25-mm [place] mechanical valvular prosthesis. Postoperatively, he did well, had no problems of bleeding, infection or arrhythmias. His Coumadin is being regulated and we will continue as an outpatient. Currently, he is ambulating and taking a diet. His incisions are healing well. He has been given discharge instructions and wound precautions and will be seen as above. TRANSINT:[id number] Voice Confirmation ID: [id number] DOCUMENT ID: [id number] CHERYL STAHL MD at 1325 CC: [id number] DICTATION DATE: 01/01/17 1117 COUNTRY SALES MANAGER: 01/02/17 0147 DIS IN 12/08/16 [facility] [address] [place] [address]
== END 2016-12-08 13:13 | disposition home or self-care (01) | DRG 221 ==
LOC: D.ICU 05:05 → D.SDCHOLD 05:05 → D.CVICU 05:05 → D.SDCHOLD 07:30 → D.ICU 09:46 → D.CVICU 12-06 12:36
PROVIDERS: ADMIT Internal Medicine Cardiovascular Disease
PROC: 02RF0JZ Replacement of Aortic Valve with Synthetic Substitute, Open Approach (ICD-10-PCS; principal; 2016-12-03 07:30)
DX: I35.0 Nonrheumatic aortic (valve) stenosis (principal); E78.00 Pure hypercholesterolemia, unspecified; I10 Essential (primary) hypertension; E66.9 Obesity, unspecified; Z68.39 Body mass index [BMI] 39.0-39.9, adult

== ENCOUNTER → 2016-12-10 09:22 | Outpatient (CLI) | payer BC ==
[2016-12-04 09:22] VITALS: BMI 42.0
[~2016-12-10 09:22] MED LIST changes: +COUMADIN10 MG PO; +COUMADIN7.5 MG PO; +COZAAR50 MG PO; +HYDROCODONE-APA1 TAB PO; +ZYLOPRIM100 MG PO
[2016-12-10 10:07] LABS: INR 1.67 (0.85-1.17); PROTIME 19.7 SECONDS (11.6-15.0)
== END | disposition home or self-care (01) ==
LOC: D.LAB 09:22
PROVIDERS: Internal Medicine Cardiovascular Disease
DX: Z51.81 Encounter for therapeutic drug level monitoring (principal); Z79.01 Long term (current) use of anticoagulants; Z95.2 Presence of prosthetic heart valve

== ENCOUNTER → 2016-12-13 10:04 | Outpatient (CLI) | payer BC ==
[2016-12-04 09:22] VITALS: BMI 42.0
[2016-12-13 10:55] LABS: INR 3.32 (0.85-1.17); PROTIME 34.1 SECONDS (11.6-15.0)
== END | disposition home or self-care (01) ==
LOC: D.LAB 10:04
PROVIDERS: Internal Medicine Cardiovascular Disease
DX: Z51.81 Encounter for therapeutic drug level monitoring (principal); Z79.01 Long term (current) use of anticoagulants; Z95.2 Presence of prosthetic heart valve

== ENCOUNTER 2016-12-16 11:17 | Inpatient (IN) | payer BC ==
[~2016-12-16] VITALS: Ht 188 cm; Wt 137.3 kg
[~2016-12-16 11:17] MED LIST changes: -COUMADIN7.5 MG PO; -ZYLOPRIM100 MG PO
[2016-12-16 11:59] VITALS: BP 127/71; Ht 188 cm; Wt 137.3 kg
--- NOTE | 2016-12-16 12:00 | NUR ---
PT ARRIVED TO UNIT. ORIENTED TO FLOOR. ADMISSION WORK-UP BEING DONE AT THIS TIME. NO VISIBLE VEINS NOTED, WILL CALL FOR VASCULAR NURSE TO LIMIT STICKS/INFECTION. URINE CX NEEDED AND PT WAS TAUGHT ON MID-STREAM COLLECTION PROCESS, PT ALSO NEEDS SPUTUM CX BUT DENIES BEING ABLE TO COUGH UP ANYTHING. AT BEDSIDE. WILL CONTINUE WITH PLAN OF CARE.
[2016-12-16 12:28] VITALS: BP 127/71
[2016-12-16 12:41] VITALS: BP 127/71
--- NOTE | 2016-12-16 13:57 | NUR ---
R.HAND PIV ACCESS GRANTED PER VASCULAR NURSE. NS INFUSING @20ML/HR. SWAB CAPS IN USE ON ALL PORTS. DRSG CDI. PT USING INCENATIVE SPIROMETER AND AWARE TO USE IT Q1H. PT DENIES ANY CURRENT PAIN OR NEEDS. FRIEND AT BEDSIDE. WILL CPOC.
[2016-12-16 15:29] LABS: BASOPHILS 0.1 % (0.0-2.0); HEMATOCRIT 34.5 % (42.0-54.0); HEMOGLOBIN 11.3 g/dL (13.5-17.5); IMMATURE GRANULOCYTES 0.6 % (0-5); LYMPHOCYTES 11.5 % (15-50); MCHC 32.8 g/dL (31.0-37.0); MCV 85.6 fL (80.0-100.0); MEAN PLATELET VOLUME 8.4 fL (7.4-10.4); MONOCYTES 11.3 % (2-11); NEUTROPHILS 74.5 % (40-80); RBC 4.03 10x6/uL (4.20-6.10); RDW 13.8 % (11.5-14.5); WBC 7.2 10x3/uL (4.8-10.8)
[2016-12-16 15:34] LABS: PLATELET COUNT 309 10x3/uL (130-400)
[2016-12-16 15:37] LABS: CALC OSMOLALITY 278 mosm/kg (275-300); CALCIUM 8.7 mg/dL (8.5-10.1); CARBON DIOXIDE 28.5 mmol/L (21.0-32.0); CHLORIDE - SERUM 103 mmol/L (98-107); GLUCOSE 99 mg/dL (74-106); POTASSIUM - SERUM 3.8 mmol/L (3.5-5.1); SODIUM 138 mmol/L (136-145); UREA NITROGEN 20 mg/dL (7-18); eGFR NON AFRICAN AMERICAN 85 mL/min (90-120)
[2016-12-16 16:28] VITALS: BP 138/83
--- NOTE | 2016-12-16 17:11 | NUR ---
Patient Name: NAZANIN RAMEY Admission Status: Urgent Accout number: [id number] Admission Date: 12-16-2016 : 1970 Admission Diagnosis: Attending: BABATUNDE Current LOS: 1 Anticipated DC Date: Planned Disposition: Home Primary Insurance: [employer] O Discharge Planning Comments: * Is the patient Alert and Oriented? Yes 0 * How many steps to enter\exit or inside your home? 16 W/RAILS 0 * PCP DR. WILDE 0 * Pharmacy [facility] 0 * Preadmission Environment Home with Family 0 * ADLs Independent 0 * Equipment CPAP 0 * Other Equipment [facility] - MEDICAL EQUIPMENT PROVIDER 0 * List name and contact numbers for known caregivers / representatives who currently or will assist patient after discharge: JACKY RAMEY, SPOUSE, 0 * Community resources currently utilized None 0 * Please name any agencies selected above. NONE 0 * Additional services required to return to the preadmission environment? No 0 * Can the patient safely return to the preadmission environment? Yes 0 * Has this patient been hospitalized within the prior 30 days at any hospital? Yes 0 CM MET WITH PT IN ROOM TO DISCUSS DISCHARGE PLANNING AND NEEDS. PT REPORTS LIVING AT HOME INDEPENDENTLY WITH HIS SPOUSE. PT HAS CPAP PROVIDED BY [facility]. PT HAS NO OUTSIDE SERVICES ASSISTING IN THE HOME. PT REPORTS HAVING 16 STEPS INSIDE THE HOME BUT NOT HAVING TO USE THEM ALL DAILY LIVING AREAS ARE ON THE FIRST FLOOR. CM DISCUSSED AVAILABILITY OF HOME HEALTH, REHAB SERVICES AND MEDICAL EQUIPMENT. PT DENIES DISCHARGE NEEDS, REPORTS HIS SPOUSE WILL PICK HIM UP FOR DISCHARGE HOME. PT PLANS TO DISCHARGE HOME WITH SPOUSE, NO ANTICIPATED DISCHARGE NEEDS. CM TO FOLLOW AND ASSIST NEEDED. Link Cutter: Nilay Beckham
[2016-12-16 19:53] VITALS: BP 133/76
--- NOTE | 2016-12-16 22:44 | NUR ---
PT RESTING IN BED. HS MEDS GIVEN. ALERT/ORIENTED. IVF TO RFA WITH NS @ 20ML/HR. NONLABORED RESPIRATIONS ON ROOM AIR. TEDS IN PLACE. HAS ISSUES WITH GOUT IN FEET/ANKLES. SEE SHIFT ASSESSMENT. CPOC. NO NEEDS VOICED. TELEMETRY TO BE INITIATED.
--- NOTE | 2016-12-16 23:09 | NUR ---
URINE COLLECTED FOR UA C&S, SENT TO LAB.
[2016-12-17 00:24] VITALS: BP 139/65
[2016-12-17 04:23] VITALS: BP 133/67
[2016-12-17 06:39] LABS: BASOPHILS 0.1 % (0.0-2.0); EOSINOPHILS 2.3 % (0-7); HEMATOCRIT 33.4 % (42.0-54.0); HEMOGLOBIN 10.9 g/dL (13.5-17.5); IMMATURE GRANULOCYTES 0.5 % (0-5); MCH 27.7 pg (26.0-34.0); MCHC 32.6 g/dL (31.0-37.0); MCV 84.8 fL (80.0-100.0); MEAN PLATELET VOLUME 8.5 fL (7.4-10.4); MONOCYTES 13.3 % (2-11); NEUTROPHILS 64.8 % (40-80); PLATELET COUNT 324 10x3/uL (130-400); RBC 3.94 10x6/uL (4.20-6.10); RDW 13.7 % (11.5-14.5)
[2016-12-17 07:04] LABS: CALC OSMOLALITY 276 mosm/kg (275-300); CALCIUM 9.1 mg/dL (8.5-10.1); CARBON DIOXIDE 24.4 mmol/L (21.0-32.0); CHLORIDE - SERUM 105 mmol/L (98-107); GLUCOSE 92 mg/dL (74-106); SODIUM 138 mmol/L (136-145); UREA NITROGEN 15 mg/dL (7-18); eGFR NON AFRICAN AMERICAN 85 mL/min (90-120)
[2016-12-17 07:10] LABS: INR 3.18 (0.85-1.17); PROTIME 32.9 SECONDS (11.6-15.0)
--- NOTE | 2016-12-17 07:26 | NUR ---
PT SITTING UP IN BED DENIES NEEDS WILL CONT TO MONITOR
[2016-12-17 07:32] LABS: MAGNESIUM - SERUM 2.1 mg/dL (1.8-2.4); PHOSPHOROUS 4.2 mg/dL (2.5-4.9)
[2016-12-17 08:49] VITALS: BP 125/71
[2016-12-17 12:43] VITALS: BP 128/70
--- NOTE | 2016-12-17 13:25 | NUR ---
PT PIV FELL OUT. CALLED VASCULAR NURSE TAMIKA TO COME RESITE PT.
--- NOTE | 2016-12-17 14:00 | NUR ---
PT REFUSED PIV ACCESS. HE WANTS TO GO HOME. WANTS TO WAIT UNTIL HE SEES DR STAHL BEFORE HE GETS ANOTHER PIV. WILL WAIT UNTIL DR STAHL ROUNDS.
[2016-12-17 17:19] VITALS: BP 121/66
--- NOTE | 2016-12-17 17:39 | NUR ---
PT SITTING UP IN BED DENIES NEEDS WILL CONT TO MONITOR.
[2016-12-17 21:08] VITALS: BP 129/69
--- NOTE | 2016-12-18 00:02 | NUR ---
NO CHANGES NOTED IN ASSESSMENT. NO NEEDS VOICED. CALL LIGHT WITHIN REACH. WILL CONT TO MONITOR.
[2016-12-18 00:07] VITALS: BP 141/73
--- NOTE | 2016-12-18 00:53 | NUR ---
RESTING WITH EYES CLOSED, RESPERATIONS EVEN, NO S/S DISTRESS NOTED.
[2016-12-18 04:15] VITALS: BP 117/59
[2016-12-18 06:25] LABS: BASOPHILS 0.2 % (0.0-2.0); HEMATOCRIT 33.1 % (42.0-54.0); HEMOGLOBIN 10.6 g/dL (13.5-17.5); IMMATURE GRANULOCYTES 0.2 % (0-5); LYMPHOCYTES 20.4 % (15-50); MCH 27.7 pg (26.0-34.0); MCV 86.6 fL (80.0-100.0); MEAN PLATELET VOLUME 8.4 fL (7.4-10.4); MONOCYTES 13.9 % (2-11); NEUTROPHILS 62.3 % (40-80); PLATELET COUNT 309 10x3/uL (130-400); RBC 3.82 10x6/uL (4.20-6.10); RDW 13.9 % (11.5-14.5); WBC 8.6 10x3/uL (4.8-10.8)
[2016-12-18 06:40] LABS: INR 3.44 (0.85-1.17); PROTIME 35.1 SECONDS (11.6-15.0)
[2016-12-18 06:44] LABS: CALC OSMOLALITY 280 mosm/kg (275-300); CALCIUM 8.7 mg/dL (8.5-10.1); CARBON DIOXIDE 26.8 mmol/L (21.0-32.0); CHLORIDE - SERUM 105 mmol/L (98-107); CREATININE - SERUM 0.9 mg/dL (0.6-1.3); GLUCOSE 94 mg/dL (74-106); MAGNESIUM - SERUM 2.1 mg/dL (1.8-2.4); PHOSPHOROUS 4.8 mg/dL (2.5-4.9); SODIUM 139 mmol/L (136-145); UREA NITROGEN 20 mg/dL (7-18); eGFR NON AFRICAN AMERICAN > 90 mL/min (90-120)
--- NOTE | 2016-12-18 07:54 | NUR ---
AM ROUNDING- PT SITTING UP IN BED PLAYING ON IPAD. ON MONITOR SHOWING SR, HR 84. ON EP, WILL CHECK AM LABS AND TREAT PER PROTOCOL. ON ROOM AIR. NO IV ACCESS, PER REPORT FROM BACK WINDER NURSE OLIVER, DOCTOR IS AWARE. PT IS ON COUMADIN AND IS UP AD MINDA. NO NEED AT CURRENT TIME. WILL CONTINUE TO MONITOR.
[2016-12-18 08:06] VITALS: BP 159/93
--- NOTE | 2016-12-18 10:01 | NUR ---
PT INFORMED ME THAT HIS IV CAME OUT LAST NIGHT. PT IS ONLY ON NS (IV FLUIDS). PT IS EATING AND DRINKING. PT STATED THAT HE DID NOT WANT ANOTHER IV BECAUSE DR. STAHL WAS IN ROOM YESTERDAY AND PER PT, DR. STAHL INFORMED PT THAT HE SHOULD BE GOING HOME. PT STATED HE DID NOT WANT ANOTHER IV IF HE WAS ONLY GETTING IV FLUIDS.
[2016-12-18 11:55] VITALS: BP 132/54
[2016-12-18] MEDS ORDERED: COUMADIN7.5 MG PO (12:10)
[2016-12-18] MEDS ORDERED: ZYLOPRIM100 MG PO (12:11)
--- NOTE | 2016-12-18 13:38 | CN ---
PATIENT NAME:NAZANIN WILLIS MEDICAL RECORD: [id number] : [birth year] LOCATION:D. D.2132 ADMIT DATE: 12/16/16 ACCOUNT: [id number] CONSULTING PHYSICIAN: CHERYL STAHL MD REFERRING PHYSICIAN: TERESITA WILDE MD DATE OF CONSULTATION: 12/16/2016 REASON FOR ADMISSION: Fever. HISTORY OF PRESENT ILLNESS: Mr. Willis is a 46-year-old gentleman who underwent aortic valve replacement approximately 2 weeks ago. He had fever of 102 yesterday and was associated with chills. Due to his recent valve replacement, he is admitted for workup and treatment. PAST MEDICAL HISTORY: 1. Severe aortic stenosis. 2. Aortic valve replacement. 3. History of dyspnea. 4. Tonsillectomy, remote. ALLERGIES: No known drug allergies. FAMILY HISTORY: Positive for atherosclerotic cardiovascular disease. HABITS: He does not smoke cigarettes. He does not drink alcohol. REVIEW OF SYSTEMS: He is postop aortic valve replacement and median sternotomy incision is healing well without any drainage. His chest is clear. He has occasional cough. He is having no shortness of breath, no history of rhinorrhea. He has had a slight sore throat. Otherwise, all 14 systems are negative. PHYSICAL EXAMINATION: GENERAL: Well-developed, well-nourished male in no acute distress. SKIN: Warm and dry with well healed incision in the chest. HEAD: Normocephalic. EYES: Pupils equal, round, reactive to light and accommodation. Extraocular muscles intact. ENT: Moist pink buccal mucosa. NECK: Supple, nontender, without abnormal mass or organomegaly. No jugular venous distention, no carotid bruits. CHEST: Normal AP diameter. LUNGS: Clear to auscultation and percussion. HEART: In a regular rhythm with good prosthetic heart sounds. No murmur, rub or gallop. ABDOMEN: Soft, nontender. No abnormal mass or organomegaly. Bowel sounds are active. GENITOURINARY: Deferred. RECTAL: Deferred. EXTREMITIES: No clubbing, cyanosis or edema. NEUROLOGICAL: Mental status normal. Cranial nerves II through XII normal. Motor normal. Sensory normal. IMPRESSION: CONSULT REPORT [id number] NAZANIN WILLIS 1. Fever of unknown origin. 2. Aortic valve replacement. 3. Essential hypertension. MEDICATIONS: 1. Revere 10/325 one q.6 hours p.r.n. 2. Claritin 10 mg daily. 3. Losartan 50 mg daily. 4. Coumadin 10 mg daily. With the patient's history of recent valve replacement, the patient admitted to the hospital for blood cultures workup of fever of unknown origin. Echocardiogram with no antibiotics until cultures obtained. TRANSINT:[id number] Voice Confirmation ID: [id number] DOCUMENT ID: [id number] CHERYL STAHL MD at 1338 CC: [id number] DICTATION DATE: 12/16/16 1536 SAFETY AND OCCUPATIONAL HEALTH MANAGER: 12/16/16 1859 ADM IN [facility] [address] [place] [id number]
--- NOTE | 2016-12-18 14:44 | NUR ---
PT IS CURRENTLY AWAITING D/C. INFORMED HIM THAT D/C PAPERWORK IS BEING DONE NOW AND WILL BRING IT IN TO ROOM AND EXPLAIN IT TO HIM SOON IT GETS DONE BY JOANNA MC. WILL CONTINUE TO MONITOR.
[2016-12-18 15:03] VITALS: BP 136/62
--- NOTE | 2016-12-18 15:36 | NUR ---
PT IS CURRENTLY IN SHOWER. AWAITING PT TO GET OUT OF SHOWER TO EXPLAIN D/C PAPERWORK. WILL CONTINUE TO MONITOR.
--- NOTE | 2016-12-18 15:52 | NUR ---
D/C PAPERWORK EXPLAINED TO PT AND SIGNED, PLACED IN CHART. HEART MONITOR REMOVED PRIOR TO PT TAKING SHOWER. HEART MONITOR RETURNED TO [facility]. PT D/C VIA WHEELCHAIR.
--- NOTE | 2016-12-21 10:33 | EC ---
PATIENT:NAZANIN RAMEY DATE OF SERVICE: 12/16/16 SEX: M MEDICAL RECORD: [id number] DATE OF : [birth year] LOCATION:D.M2 D.213 AGE OF PATIENT: 46 ADMISSION DATE: 12/16/16 REFERRING PHYSICIAN: INTERPRETING PHYSICIAN: VIVIANE SOTO MD ECHOCARDIOGRAM REPORT ECHO CHARGES 4 ECHO COMPLETE CLINICAL DIAGNOSIS: FEVER ON UNKNOWN ORGIN RECENT AVR ON ECHOCARDIOGRAPHIC MEASUREMENTS (adult normal given) AC root (d.<3.7cm) 3.0 LV Septum d (<1.2 cm> 1.4 Valve Excursion 1.6 LV Septum (systole) 1.6 Left Atria (s.<4.0cm> 4.0 LVPW d(<1.2cm) 1.6 RV (d.<2.3cm) 4.2 LVPW (sytole) 2.0 LV diastole(<5.6CM) 6.3 MV E-F(>70mm/sec) LV systole 4.8 LVOT Diameter 1.5 MV exc.(>10mm) 1.2 Est.ejection fraction (50-75%) Pericardial Effusion N DOPPLER: LVIT A 69.0 E 108 LA RVSP 24 LVOT 118 AOP1/2T Asc. Ao 217 RVOT 120 RA PA 145 AV Gradient Peak 18.88 AV Mean 11.74 AV Area 1.5 MV Gradient Peak 4.65 MV Mean 2.14 MV Area COMMENTS: Assistant Professor Of Business: Faustino HUNT Flanger:1 Dr. Soto TAPE# PACS DATE OF SERVICE: 12/16/2016 Echocardiogram FINDINGS: 1. Left ventricular chamber size is mildly dilated. Left ventricular systolic function is preserved, ejection fraction in a 55% range. 2. Left atrium is upper limits of normal at 4.0 cm. Right atrium and right ventricular chamber sizes are moderately dilated. 3. Valvular structures: Aortic valve was replaced with a mechanical prosthesis ECHOCARDIOGRAM REPORT [id number] NAZANIN RAMEY with normal structure and function in this position. The remaining valvular structures have normal structure and motion. 4. Doppler interrogation only reveals mild tricuspid regurgitation. No other valvular insufficiency or stenosis. 5. No evidence of pericardial effusion or left ventricular thrombus. TRANSINT:[id number] Voice Confirmation ID: [id number] DOCUMENT ID: [id number] VIVIANE SOTO MD at 1033 CC: [id number] DICTATION DATE: 12/17/16 1049 MOTOR VEHICLE LIGHT ASSEMBLER: 12/17/16 1515 DIS IN 12/18/16 [place] [id number] [place] [id number]
== END 2016-12-18 16:04 | disposition home or self-care (01) | DRG 864 ==
LOC: D.M2 11:17
PROVIDERS: Family Medicine; Internal Medicine Cardiovascular Disease; ADMIT Family Medicine
DX: R50.9 Fever, unspecified (principal); Z95.2 Presence of prosthetic heart valve; I10 Essential (primary) hypertension; Z68.39 Body mass index [BMI] 39.0-39.9, adult; I25.10 Atherosclerotic heart disease of native coronary artery without angina pectoris; E78.5 Hyperlipidemia, unspecified; G47.30 Sleep apnea, unspecified; M10.9 Gout, unspecified; Z86.73 Personal history of transient ischemic attack (TIA), and cerebral infarction without residual deficits

== ENCOUNTER → 2016-12-23 09:52 | Outpatient (CLI) | payer BC ==
[2016-12-16 11:59] VITALS: BMI 38.6
[~2016-12-23 09:52] MED LIST changes: +COUMADIN7.5 MG PO; +ZYLOPRIM100 MG PO
[2016-12-23 10:27] LABS: INR 3.7 (0.85-1.17); PROTIME 37.1 SECONDS (11.6-15.0)
== END | disposition home or self-care (01) ==
LOC: D.LAB 09:52
PROVIDERS: Internal Medicine Cardiovascular Disease
DX: Z95.2 Presence of prosthetic heart valve (principal); Z79.01 Long term (current) use of anticoagulants

== ENCOUNTER → 2016-12-27 09:24 | Outpatient (CLI) | payer BC ==
[2016-12-16 11:59] VITALS: BMI 38.6
[2016-12-27 10:45] LABS: INR 2.92 (0.85-1.17); PROTIME 30.8 SECONDS (11.6-15.0)
== END | disposition home or self-care (01) ==
LOC: D.LAB 09:24
PROVIDERS: Internal Medicine Cardiovascular Disease
DX: Z95.2 Presence of prosthetic heart valve (principal); Z79.01 Long term (current) use of anticoagulants

== ENCOUNTER → 2017-01-03 09:33 | Outpatient (CLI) | payer BC ==
[2016-12-16 11:59] VITALS: BMI 38.6
[2017-01-03 10:04] LABS: INR 2.64 (0.85-1.17); PROTIME 28.4 SECONDS (11.6-15.0)
== END | disposition home or self-care (01) ==
LOC: D.LAB 09:33
PROVIDERS: Internal Medicine Cardiovascular Disease
DX: Z51.81 Encounter for therapeutic drug level monitoring (principal); Z79.01 Long term (current) use of anticoagulants; Z95.2 Presence of prosthetic heart valve

== ENCOUNTER → 2017-01-17 09:03 | Outpatient (CLI) | payer BC ==
[2016-12-16 11:59] VITALS: BMI 38.6
[2017-01-17 09:46] LABS: INR 2.41 (0.85-1.17); PROTIME 26.3 SECONDS (11.6-15.0)
== END | disposition home or self-care (01) ==
LOC: D.LAB 09:03
PROVIDERS: Internal Medicine Cardiovascular Disease
DX: Z95.2 Presence of prosthetic heart valve (principal); Z79.01 Long term (current) use of anticoagulants

== ENCOUNTER → 2017-04-15 19:32 | Outpatient (CLI) | payer BC ==
[2016-12-16 11:59] VITALS: BMI 38.6
== END | disposition home or self-care (01) ==
LOC: D.SLEEP 19:32
DX: G47.33 Obstructive sleep apnea (adult) (pediatric) (principal)

== ENCOUNTER 2017-08-23 09:48 | Outpatient (CLI) | payer BC ==
[2017-08-23 10:51] VITALS: BMI 39.9
== END 2017-08-23 16:39 | disposition home or self-care (01) ==
LOC: D.OPS 09:48
DX: Z95.2 Presence of prosthetic heart valve (principal)

== ENCOUNTER 2017-08-24 00:37 | Emergency (ER) | payer BC ==
[2017-08-23 10:51] VITALS: BMI 39.9
== END 2017-08-24 01:53 | disposition home or self-care (01) ==
LOC: D.ER 00:37
DX: M10.032 Idiopathic gout, left wrist (principal); M25.532 Pain in left wrist; I10 Essential (primary) hypertension

== ENCOUNTER 2018-11-06 09:50 | Outpatient (CLI) | payer BC ==
[~2018-11-06] VITALS: Ht 188 cm; Wt 150.0 kg
[2018-11-06 10:47] VITALS: Ht 188 cm; Wt 150.0 kg
== END 2018-11-06 13:05 | disposition home or self-care (01) ==
LOC: D.OPS 09:50
DX: Z95.2 Presence of prosthetic heart valve (principal); Z01.812 Encounter for preprocedural laboratory examination

== ENCOUNTER 2019-06-12 09:42 | Outpatient (CLI) | payer BC ==
[~2019-06-12] VITALS: Ht 182.9 cm; Wt 152.3 kg
[2019-06-12 10:09] VITALS: BP 138/76; Ht 182.9 cm; Wt 152.3 kg
--- NOTE | 2019-06-12 12:40 | NUR ---
PT IV REMOVED AT THIS TIME, INTACT, NO REDNESS OR SWELLING NOTED AT SITE.
--- NOTE | 2019-06-12 12:45 | NUR ---
PT LEAVING OPS AT THIS TIME AMBULATORY, NO ACUTE DISTRESS NOTED.
== END 2019-06-12 12:45 | disposition home or self-care (01) ==
LOC: D.OPS 09:42
PROVIDERS: ATTEND Internal Medicine Cardiovascular Disease
DX: Z95.2 Presence of prosthetic heart valve (principal)

== ENCOUNTER → 2019-08-16 08:59 | Outpatient (CLI) | payer BC ==
--- NOTE | 2019-08-21 11:41 | EC ---
PATIENT:NAZANIN RAMEY DATE OF SERVICE: 08/16/19 SEX: M MEDICAL RECORD: [id number] DATE OF : [birth year] [facility] AGE OF PATIENT: 49 ADMISSION DATE: 08/16/19 REFERRING PHYSICIAN: INTERPRETING PHYSICIAN: VIVIANE SOTO MD ECHOCARDIOGRAM REPORT ECHO CHARGES 4 ECHO COMPLETE Date: 08/16/19 CLINICAL DIAGNOSIS: CAD,AVR ECHOCARDIOGRAPHIC MEASUREMENTS (adult normal given) AC root (d.<3.7cm) 3.0 cm LV Septum d (<1.2 cm> 1.4 cm Valve Excursion 1.7 cm LV Septum (systole) 1.5 cm Left Atria (s.<4.0cm> 3.5 cm LVPW d(<1.2cm) 1.8 cm RV (d.<2.3cm) 3.9 cm LVPW (sytole) 2.0 cm LV diastole(<5.6CM) 4.3 cm MV E-F(>70mm/sec) cm LV systole 2.4 cm LVOT Diameter 1.8 cm MV exc.(>10mm) 1.2 cm Est.ejection fraction (50-75%) % DOPPLER: LVIT cm/sec A 81.0 cm/sec E 71.0 cm/sec LA cm/sec RVSP 30 mmHg LVOT 220 cm/sec AOP1/2T m/s Asc. Ao 232 cm/sec RVOT 81 cm/sec RA cm/sec PA cm/sec AV Gradient Peak 21.60mmHg AV Mean 12.09mmHg AV Area 2.1 cm MV Gradient Peak 5.50 mmHg MV Mean 2.24 mmHg MV Area cm COMMENTS: Balloon Seller: Faustino HUNT Sports Development Officer: 1 Dr. Soto TAPE# PACS Pericardial Effusion N DATE OF SERVICE: 08/16/2019 FINDINGS: 1. Left ventricular chamber size is within normal limits. Left ventricular systolic function is normal. Overall ejection fraction estimated at 60%. 2. Left atrium is within normal limits at 3.5 cm. Right atrium and right ventricular chamber sizes are mildly dilated. 3. Valvular structures: Aortic valve is replaced with mechanical prosthesis with normal structure and function in its position. The remaining valvular structures have normal structure and motion. ECHOCARDIOGRAM REPORT [id number] NAZANIN RAMEY 4. Doppler interrogation only reveals mild tricuspid regurgitation. No other valvular insufficiency or stenosis. Pulmonary systolic pressure estimated at 30 mmHg. 5. No evidence of pericardial effusion or left ventricular thrombus. TRANSINT:[id number] Voice Confirmation ID: [id number] DOCUMENT ID: [id number] VIVIANE SOTO MD at 1141 CC: [id number] DICTATION DATE: 08/17/19 1103 TAKE OFF MAN: 08/17/19 1110 DEP CLI 08/16/19 [place] [id number] [place] [address]
== END | disposition home or self-care (01) ==
LOC: D.HCCECHO 08:59
PROVIDERS: ATTEND Internal Medicine Interventional Cardiology
DX: I25.10 Atherosclerotic heart disease of native coronary artery without angina pectoris (principal)

== ENCOUNTER 2020-07-02 10:00 | Outpatient (CLI) | payer BC ==
[~2020-07-02] VITALS: Ht 188 cm; Wt 156.8 kg
[2020-07-02 10:17] VITALS: BP 126/74; Ht 188 cm; Wt 156.8 kg
== END 2020-07-02 12:50 | disposition home or self-care (01) ==
LOC: D.OPS 10:00
PROVIDERS: ATTEND Internal Medicine Cardiovascular Disease
DX: Z95.2 Presence of prosthetic heart valve (principal)

== ENCOUNTER 2020-12-31 10:30 | Outpatient (CLI) | payer BC ==
[~2020-12-31] VITALS: Ht 188 cm; Wt 159.1 kg
[2020-12-31 12:11] VITALS: BP 130/79; Ht 188 cm; Wt 159.1 kg
--- NOTE | 2020-12-31 12:19 | NUR ---
GENTAMYCIN INFUSION COMPLETED
--- NOTE | 2020-12-31 14:28 | NUR ---
VANCOMYCIN COMPLETED AT 1320
== END 2020-12-31 13:30 | disposition home or self-care (01) ==
LOC: D.OPS 10:30
PROVIDERS: ATTEND Thoracic Surgery (Cardiothoracic Vascular Surgery)
DX: Z95.2 Presence of prosthetic heart valve (principal)